=== PATIENT | female | born 1995 | race Caucasian/White ===

== ENCOUNTER 2019-01-03 19:57 | Emergency (ER) | payer OTHER ==
[~2019-01-03] VITALS: Ht 162.6 cm; Wt 49.4 kg
--- NOTE | 2019-01-03 20:10 | NUR ---
[facility] CANAL[facility] FROM [employer]. TO ER BED 8. AAOX4, NO RESP DISTRESS NOTED, BRREATHING EVEN AND UNLABORED. C/O DIZZYNESS. PT REPORTS THAT SHE FELT HOT, DIZZY AND PASSED OUT WHICH SHE DOES NOT REMEMBER HOW LONG. THEN SHE FELT HOT, DIZZY AND SHAKY. PT ALSO REPORTS THE SHE GET DIXXY WITH MOVEMENT. AWAITING MD FOR EVAL.
[2019-01-03] MEDS: IV NS 0.9% 1,000 ML BAG IV ONE (20:35)
--- NOTE | 2019-01-03 20:35 | NUR ---
IV LINE OBTAINED ON R AC 20G. BLOOD DRAWN AND SENT OT LAB. EKG AT BEDSIDE
[2019-01-03 20:41] LABS: BASOPHILS # (AUTO) 0.1 /CMM (0.0-0.2); BASOPHILS % (AUTO) 1.3 % (0.0-2.0); EOSINOPHILS % (AUTO) 1.6 % (0.0-6.0); HEMATOCRIT 37 % (33-45); HEMOGLOBIN 12.8 g/dL (11.5-14.8); LYMPHOCYTES # (AUTO) 1.8 /CMM (0.8-4.8); LYMPHOCYTES % (AUTO) 42.7 % (20.0-44.0); MEAN CORPUSCULAR HGB CONC 35 g/dl (31.0-36.0); MEAN CORPUSCULAR VOLUME 90 fL (82-100); MONOCYTES # (AUTO) 0.5 /CMM (0.1-1.30); MONOCYTES % (AUTO) 10.9 % (2.0-12.0); NEUTROPHILS # (AUTO) 1.8 /CMM (1.8-8.9); NEUTROPHILS % (AUTO) 43.5 % (43.0-81.0); PLATELET COUNT (AUTO) 199 /CMM (150-450); RED BLOOD CELL COUNT(AUTO) 4.12 MIL/uL (4.0-5.2); WHITE BLOOD COUNT (AUTO) 4.2 K/uL (4.3-11.0)
[2019-01-03 20:48] LABS: CALCIUM, SERUM 8.9 mg/dL (8.5-10.1); CREATININE 0.7 mg/dL (0.6-1.3); POTASSIUM 3.8 mmol/L (3.5-5.1)
--- NOTE | 2019-01-03 21:52 | NUR ---
Patient discharged to home in stable condition. Written and verbal after care instructions given. Patient verbalizes understanding of instruction. IV removed. Catheter intact and site benign. Pressure and 4x4 applied to site. No bleeding noted. ambulatory with a steady gait noted. pt aaox4 no acute distress noted, resp even and unlabored.
[2019-01-03 21:54] VITALS: BP 121/71
== END 2019-01-03 21:54 | disposition home or self-care (01) ==
LOC: ER 20:00
DX: R55 Syncope and collapse (principal); Z88.1 Allergy status to other antibiotic agents; Z88.8 Allergy status to other drugs, medicaments and biological substances
CPT/HCPCS: 36415; 80048; 85025; 93005; 96360; 99284; J7030